=== PATIENT | female | born 1970 | race Caucasian/White ===

== ENCOUNTER 2019-12-06 17:58 | Emergency (ER) | payer MEDICAID ==
[~2019-12-06] VITALS: Ht 157.5 cm; Wt 78.0 kg
[2019-12-06] MEDS ORDERED: PREDNISONE 20MG TABLET PO ONE (19:45)
[2019-12-06 20:38] VITALS: BP 145/90
== END 2019-12-06 20:46 | disposition home or self-care (01) ==
LOC: ER 17:58
DX: Z03.818 Encounter for observation for suspected exposure to other biological agents ruled out (principal); R06.00 Dyspnea, unspecified; R50.9 Fever, unspecified; R07.89 Other chest pain
CPT/HCPCS: 71045; 93005; 99283; C9803; J7512; U0003

== ENCOUNTER 2019-12-22 13:17 | Emergency (ER) | payer MEDICAID ==
[~2019-12-22] VITALS: Ht 162.6 cm; Wt 75.0 kg
[2019-12-22 15:50] VITALS: BP 122/78
== END 2019-12-22 15:53 | disposition home or self-care (01) ==
LOC: ER 13:17
DX: J06.9 Acute upper respiratory infection, unspecified (principal)
CPT/HCPCS: 87070; 87430; 99283